=== PATIENT | male | born 1970 | race Caucasian/White ===

== ENCOUNTER 2016-12-01 07:33 | Emergency (ER) | payer BC ==
--- NOTE | 2016-12-01 08:19 | RAD ---
Exam: Two-view right shoulder COMPARISON: None INDICATION: Fall onto shoulder, pain in proximal humerus. Findings: AP and transscapular y views of the right shoulder were obtained. There is an anterior right shoulder dislocation. No displaced fracture is identified. Moderate degenerative changes are present within the acromioclavicular joint. Visualized right hemithorax unremarkable. IMPRESSION: Anterior shoulder dislocation.
--- NOTE | 2016-12-01 08:57 | RAD ---
Exam: Two-view right shoulder INDICATION: Postreduction. FINDINGS: AP and transscapular y views of the right shoulder were obtained at 0841 hours and compared with a similar exam obtained the same day at 0814 hours. There is now anatomic alignment at the glenohumeral joint; the humeral head now resides within the glenoid fossa. Hill-Sachs deformity is present within the humeral head although no displaced fracture is identified. Moderate degenerative changes are again appreciated within the right acromioclavicular joint. Visualized right hemithorax within normal limits. IMPRESSION: Anatomic alignment at the glenohumeral joint postreduction. Hill-Sachs deformity is appreciated within the humeral head, however no acute displaced fracture is identified.
== END 2016-12-01 09:25 | disposition home or self-care (01) ==
LOC: ED 07:33
PROC: 0RSJXZZ Reposition Right Shoulder Joint, External Approach (ICD-10-PCS; principal; 2016-12-01)
DX: S43.004A Unspecified dislocation of right shoulder joint, initial encounter (principal); W01.0XXA Fall on same level from slipping, tripping and stumbling without subsequent striking against object, initial encounter; Y93.9 Activity, unspecified; Y92.9 Unspecified place or not applicable; Y99.9 Unspecified external cause status